=== PATIENT | female | born 1985 | race Caucasian/White ===

== ENCOUNTER → 2024-11-09 09:43 | Outpatient (BNVA) | payer MEDICARE, SELFPAY | PROVIDERS: PCP Nurse Practitioner; Referring Provider Nurse Practitioner; Visit Provider Internal Medicine Cardiovascular Disease | DX: R00.1 Bradycardia, unspecified (principal); R55 Syncope and collapse; Q75.2 Hypertelorism; G40.909 Epilepsy, unspecified, not intractable, without status epilepticus; I10 Essential (primary) hypertension; R06.02 Shortness of breath; R07.9 Chest pain, unspecified | CPT/HCPCS: 99214 ==

== ENCOUNTER 2024-12-16 07:51 | Outpatient (CLI) | payer MEDICARE, SELFPAY ==
--- NOTE | 2024-12-16 07:45 | USCV_ITS ---
Blaire Javier Age: 39 Gender: F : 1985 Exam Date: 12/16/2024 08:12 Ordering Phys: Altaf Malik MD ([email or web address]) Technologist: [email or web address] Exam Location: [facility] [place] Indication: CP, SoB BP: 138 / 80 HR: 88 Rhythm: Sinus Technical Quality: Adequate MEASUREMENTS (Male / Female) Normal Values 2D ECHO LV Diastolic Diameter PLAX 4.4 cm 4.2 - 5.9 / 3.9 - 5.3 cm IVS Diastolic Thickness 1.1 cm 0.6 - 1.0 / 0.6 - 0.9 cm IVS Systolic Thickness 1.5 cm LVPW Diastolic Thickness 1.1 cm 0.6 - 1.0 / 0.6 - 0.9 cm LVPW Systolic Thickness 1.4 cm LVOT Diameter 1.9 cm LV Ejection Fraction 2D Teich 68.1 % LV Ejection Fraction MOD 4C 57.2 % LV Ejection Fraction MOD 2C 47.5 % LV Ejection Fraction 2C AL 47.4 % LA Diameter 2.7 cm RA Systolic Volume 4C AL 26.0 ml RA Systolic Volume 4C MOD 24.3 ml LA Sys Volume AL 26.5 cm cubed LA Sys Volume Index AL 14.1 cm cubed/m squared Aorta at Sinotubular Diameter 2.0 cm IVC Diameter 2.2 cm M-MODE LA Ao Ratio MM 1.7 AV Cusp Separation MM 1.7 cm DOPPLER AV Peak Velocity 122.0 cm/s LVOT Peak Velocity 107.0 cm/s AV Area Cont Eq vti 2.5 cm squared AV Area Cont Eq pk 2.5 cm squared MV Peak Velocity 79.0 cm/s MV Area PHT 5.5 cm squared Mitral E to A Ratio 1.1 TR Peak Velocity 88.0 cm/s TR Peak Gradient 3.1 mmHg TV Peak E Velocity 66.0 cm/s PV Peak Velocity 95.0 cm/s FINDINGS Left Ventricle Normal left ventricular size, systolic function and wall thickness, with no regional wall motion abnormalities. Left ventricular ejection fraction is estimated at 60 %. Normal diastolic function. Right Ventricle The right ventricle is normal in size and function. Right Atrium The right atrium is normal in size. Left Atrium The left atrium is normal in size. Mitral Valve Structurally normal mitral valve without significant stenosis or prolapse. There is no mitral regurgitation. Aortic Valve Moderate aortic valve calcification. No aortic valve stenosis. Trace aortic valve regurgitation. Tricuspid Valve Structurally normal tricuspid valve without significant stenosis or regurgitation. Pulmonary artery systolic pressure is normal. Pulmonic Valve Structurally normal pulmonic valve without significant stenosis. There is no pulmonic regurgitation. Pericardium Normal pericardium without effusion. Aorta Normal ascending aorta dimension. IVC The inferior vena cava appears normal. CONCLUSIONS Normal left ventricular size, systolic function and wall thickness, with no regional wall motion abnormalities. Left ventricular ejection fraction is estimated at 60 %. Normal diastolic function. Moderate aortic valve calcification. No aortic valve stenosis. Trace aortic valve regurgitation. There is no pericardial effusion. Right atrial pressure is around 5 mm of mercury. Altaf Malik MD (Electronically Signed) Final Date: 11 January 2025 20:44 S
== END 2024-12-16 07:52 | disposition home or self-care (01) ==
LOC: RAD 07:52
PROVIDERS: PCP Nurse Practitioner; Visit Provider Internal Medicine Cardiovascular Disease
DX: R00.1 Bradycardia, unspecified (principal); R07.9 Chest pain, unspecified; R06.02 Shortness of breath; I35.8 Other nonrheumatic aortic valve disorders
CPT/HCPCS: 93306

== ENCOUNTER → 2025-01-06 10:41 | Outpatient (BNVA) | payer MEDICARE, SELFPAY | PROVIDERS: PCP Nurse Practitioner; Visit Provider Nurse Practitioner | DX: L04.9 Acute lymphadenitis, unspecified (principal) | CPT/HCPCS: 85025 ==

== ENCOUNTER → 2025-01-20 11:01 | Outpatient (BNVA) | payer MEDICARE, SELFPAY | PROVIDERS: PCP Nurse Practitioner; Visit Provider Nurse Practitioner | DX: R00.1 Bradycardia, unspecified (principal) | CPT/HCPCS: 82607; 83550 ==

== ENCOUNTER 2025-01-21 14:17 | Outpatient (CLI) | payer MEDICARE, SELFPAY ==
--- NOTE | 2025-01-21 14:30 | US_ITS ---
WS: [id number] ULTRASOUND SOFT TISSUES LEFT axilla HISTORY: L04.9 - Acute lymphadenitis, unspecified COMPARISON: None available. TECHNIQUE: 2-D and color Doppler imaging is submitted. Small benign-appearing lymph nodes noted within the LEFT axilla. These are normal lymph nodes with normal fatty hilum and thin cortex. No pathologically enlarged lymph nodes. Also included is ultrasound evaluation towards the LEFT axillary tail surrounding the vagal nerve stimulator. No abnormality identified. US/US soft tissue/extremity [id number] IMPRESSION: Small benign-appearing LEFT axillary lymph nodes. No mass or cyst.
== END 2025-01-21 14:18 | disposition home or self-care (01) ==
LOC: RAD 14:18
PROVIDERS: PCP Nurse Practitioner; Visit Provider Nurse Practitioner
DX: L04.9 Acute lymphadenitis, unspecified (principal)
CPT/HCPCS: 76882

== ENCOUNTER → 2025-02-07 12:04 | Outpatient (BNVA) | payer MEDICARE, SELFPAY | PROVIDERS: PCP Nurse Practitioner; Visit Provider Internal Medicine Cardiovascular Disease | DX: R00.1 Bradycardia, unspecified (principal); R55 Syncope and collapse; I10 Essential (primary) hypertension | CPT/HCPCS: 99214 ==

== ENCOUNTER → 2025-02-08 11:52 | Outpatient (BNVA) | payer MEDICARE, SELFPAY | PROVIDERS: PCP Nurse Practitioner; Visit Provider Nurse Practitioner | DX: Z86.2 Personal history of diseases of the blood and blood-forming organs and certain disorders involving the immune mechanism (principal); Z12.4 Encounter for screening for malignant neoplasm of cervix | CPT/HCPCS: 82728; 88175 ==

== ENCOUNTER 2025-02-22 16:01 | Oncology outpatient (recurring) (ONCR) | payer MEDICARE, SELFPAY | END 2025-02-27 23:59 | disposition home or self-care (01) | PROVIDERS: PCP Nurse Practitioner; Visit Provider Internal Medicine Medical Oncology | DX: D50.9 Iron deficiency anemia, unspecified (principal) | CPT/HCPCS: 99204 ==

== ENCOUNTER 2025-03-02 07:59 | Oncology outpatient (recurring) (ONCR) | payer MEDICARE, SELFPAY ==
[2025-03-02] MEDS: ferric derisomaltose 1,000 MG in sodium chloride 0.9% (100 ml) 100 ML 330 MG IV (09:11)
[2025-03-02 09:56] VITALS: BP 140/92; PULSE 89
== END 2025-03-29 23:59 | disposition home or self-care (01) ==
PROVIDERS: PCP Nurse Practitioner; Visit Provider Internal Medicine
DX: D50.9 Iron deficiency anemia, unspecified (principal)
CPT/HCPCS: 96365; J1437

== ENCOUNTER 2025-06-20 12:20 | Oncology outpatient (recurring) (ONCR) | payer MEDICARE, SELFPAY ==
[2025-06-20 13:28] LABS: Alanine Aminotransferase 41 U/L (0-33); Albumin Level 4.6 g/dL (3.5-5.2); Alkaline Phosphatase 69 U/L (35-105); Anion Gap 12.4 (5-19); Aspartate Amino Transferase 23 U/L (0-32); Blood Urea Nitrogen 14 mg/dL (6-20); Calcium 9.2 mg/dL (8.5-10.5); Carbon Dioxide 26 mmol/L (22-29); Chloride 106 mmol/L (98-107); Globulin 2.5 g/dL (1.3-4.6); Glucose 87 mg/dL (65-115); Osmolality Calculated 292 mOsm/kg (285-295); Potassium 3.4 mmol/L (3.5-5.1); Sodium 141 mmol/L (136-145); Total Protein 7.1 g/dL (6.6-8.7)
[2025-06-20 13:33] LABS: Hematocrit 45.9 % (36-47); Hemoglobin 14.90 g/dL (11.27-16.99); Mean Corpuscular HGB Conc 32.5 g/dL (30-55); Mean Corpuscular Hemoglobin 27.3 pg (27-33); Mean Corpuscular Volume 84.1 fl (85-98); Nucleated Red Blood Cells % 0 %; Platelet Count 284 10^3/cmm (157-399); Red Blood Count 5.46 10^6/uL (3.85-5.65); White Blood Count 9.99 10^3/uL (3.29-11.43)
[2025-06-20 14:12] LABS: Ferritin 151 ng/mL (15-150); Iron 69 ug/dL (37-145); Total Iron Binding Capacity 264 mcg/dl; Unsaturated Iron Binding 195 ug/dL (112-347)
== END 2025-06-29 23:59 | disposition home or self-care (01) ==
PROVIDERS: PCP Nurse Practitioner; Visit Provider Internal Medicine Medical Oncology
DX: D50.9 Iron deficiency anemia, unspecified (principal); Z79.899 Other long term (current) drug therapy
CPT/HCPCS: 36415; 80053; 82728; 83540; 83550; 85025; 99213

== ENCOUNTER → 2025-06-29 11:24 | Outpatient (BNVA) | payer MEDICARE, SELFPAY | PROVIDERS: PCP Nurse Practitioner; Visit Provider Nurse Practitioner | DX: R05.9 Cough, unspecified (principal) | CPT/HCPCS: 87071; 87486; 87581; 87633; 87880 ==